=== PATIENT | male | born 1985 | race American Indian/Alaskan Native ===

== ENCOUNTER 2019-12-18 13:11 | Emergency (ER) | payer SELFPAY ==
[2019-12-18 14:43] VITALS: BP 115/74
--- NOTE | 2019-12-18 14:51 | Emergency Department Report ---
Abscess Boil HPI - HPI Chief Complaint: Skin/Abscess/Foreign Body Stated Complaint: RT SIDE BITE/SWELLING/PAIN Time Seen by Provider: 12/18/19 14:46 Duration: 2 Days Location: Other Severity: Mild History: Yes Pain, Yes Previous History Home Medications: Previous Rx's Medication Instructions Recorded Last Taken Type Ketorolac [Toradol] 10 mg PO Q6H PRN #15 tablet 12/18/19 Unknown Rx Sulfamethoxazole/Trimethoprim 1 each PO BID #20 tablet 12/18/19 Unknown Rx [Bactrim Ds] cephALEXin [Keflex] 500 mg PO Q6HR #40 capsule 12/18/19 Unknown Rx Allergies/Adverse Reactions: Allergies Allergy/AdvReac Type Severity Reaction Status Date / Time Penicillins Allergy Hives Verified 12/18/19 13:17 ED Review of Systems ROS: Stated complaint: RT SIDE BITE/SWELLING/PAIN Other details as noted in HPI Comment: All other systems reviewed and negative ED Past Medical Hx - Past Medical History Previous Medical History?: Yes Hx Asthma: Yes - Surgical History Past Surgical History?: No - Social History Smoking Status: Never Smoker Substance Use Type: None - Medications Home Medications: Home Medications Medication Instructions Recorded Confirmed Last Taken Type Ketorolac [Toradol] 10 mg PO Q6H PRN #15 tablet 12/18/19 Unknown Rx Sulfamethoxazole/Trimethoprim 1 each PO BID #20 tablet 12/18/19 Unknown Rx [Bactrim Ds] cephALEXin [Keflex] 500 mg PO Q6HR #40 capsule 12/18/19 Unknown Rx ED Abscess Boil Physical Exam - Exam General: Vital signs noted. No distress. Alert and acting appropriately. Size: 2 cm Exam: Yes Tenderness ED Course Vital Signs 12/18/19 14:42 Temperature 98.4 F Pulse Rate 63 Respiratory 16 Rate Blood Pressure 115/74 O2 Sat by Pulse 100 Oximetry Critical care attestation.: If time is entered above; I have spent that time in minutes in the direct care of this critically ill patient, excluding procedure time. ED Medical Decision Making - Medical Decision Making Presentation most consistent with an infected inclusion cyst.for Cellulitis, Necrotizing Fasciitis, Pyomyositis, Sporotrichosis, Osteomyelitis or other emergent problem as a cause for this presentation. Interventions: Patients abscess has been incised with acceptable resolution Rx: Bactrim DS BID x 5 days Disposition: Patient is stable for discharge, advised to follow up with primary care physician in 48 hours. HPI Patient states that the swelling is getting worse. Pain is described as moderate in nature. Patient does has history of the same 2 years ago in the same location. No fever. No IV drug use. Physical Exam: Abscess noted to the right face preauricular region There is induration and fluctuance. Surrounding cellulitus is noted. There is no crepitus noted. No pain out of proportion to exam noted. ED Disposition Clinical Impression: Inclusion cyst Disposition: TO HOME OR SELFCARE Is pt being admited?: No Does the pt Need Aspirin: No Condition: Stable Instructions: Abscess (ED) Referrals: [facility] [Provider Group] - 3-5 Days
== END 2019-12-18 16:48 | disposition home or self-care (01) ==
LOC: ED 13:11
DX: L72.0 Epidermal cyst (principal); J45.909 Unspecified asthma, uncomplicated; Z88.0 Allergy status to penicillin